=== PATIENT | female | born 1985 | race Caucasian/White ===

== ENCOUNTER 2019-11-01 13:19 | Inpatient (IN) | payer SELFPAY ==
[~2019-11-01] VITALS: Ht 167.7 cm; Wt 72.0 kg
[2019-11-01] VITALS (9 sets, daily range): BP systolic 99–123; BP diastolic 66–83
[2019-11-01] MEDS ORDERED: NS IV 500 ML 500 ML IV ONE (13:43)
--- NOTE | 2019-11-01 13:54 | ED Abdominal Pain ---
General Chief Complaint: Respiratory Problems Stated Complaint: SOA,COUGH,FEVER, CHEST PAIN, ABD SWELLING Nursing Triage Note: PT TO ROOM CL1 WITH C/O SOA, ABD PAIN AND DISTENTION, SWOLLEN LEGS X2 DAYS. PT REPORTS RECENTLY TAKING A LONG CAR TRIP. PT HAS YELLOW TINT TO EYES. Sepsis Screen: No Definite Risk Source of Information: Patient Exam Limitations: No Limitations History of Present Illness Date Seen by Provider: Nov 01, 2019 Time Seen by Provider: 13:30 Initial Comments Patient resents ER by private conveyance with chief complaint of swelling in her abdomen past 2 days got an appointment was made it hard for her to breathe. She's had occasional dry cough. No fevers or chills. She has no significant medical history or abdominal surgeries. She has not any medicines either zdww-rob-juybrog or prescribed. She does not follow with a doctor. She did have to be hospitalized and get blood transfusions a few years ago and [place] due to abnormal uterine bleeding but she did not have any endometrial ablation, hysterectomy or any further follow-up after that. She denies use of IV drugs, blood transfused before 1984, history of hepatitis or recent trauma. She's also noticed in the last week or so a lot of increased swelling in her bilateral feet. Since she thinks she is constipated and not been able to pass a bowel movement in the past 5 or 6 days. She's not been able to urinate for the past couple days. She took a laxative with no relief of her symptoms. Allergies and Home Medications Allergies Coded Allergies: No Known Drug Allergies (Unverified , 11/01/19) Patient Home Medication List Home Medication List Reviewed: Yes Review of Systems Review of Systems Constitutional: No chills, No diaphoresis EENTM: No Blurred Vision, No Double Vision Respiratory: See HPI, Cough, Shortness of Air Cardiovascular: Denies Chest Pain, Denies Lightheadedness Gastrointestinal: See HPI, Abdomen Distended, Abdominal Pain, Constipated; Denies Diarrhea, Denies Nausea; Poor Fluid Intake Genitourinary: Denies Burning, Denies Discharge Musculoskeletal: No back pain, No joint pain Skin: No pruritus, No rash Psychiatric/Neurological: Denies Headache, Denies Numbness, Denies Paresthesia All Other Systems Reviewed Negative Unless Noted: Yes Past Gpgudqv-Ybjhmx-Zbxbpg Hx Patient Social History Alcohol Use: Regular Use Alcohol Beverage of Choice: Wine, Vodka Recreational Drug Use: No Smoking Status: Current Everyday Smoker Type Used: Cigarettes 2nd Hand Smoke Exposure: Yes Recent Foreign Travel: No Contact w/Someone Who Travel: No Recent Infectious Disease Expo: No Recent Hopitalizations: No Physical Abuse: No Sexual Abuse: No Mistreated: No Fear: No Seasonal Allergies Seasonal Allergies: No Past Medical History Surgeries: No Respiratory: No Cardiac: No Neurological: No Genitourinary: No Gastrointestinal: No Musculoskeletal: No Endocrine: No HEENT: No Cancer: No Psychosocial: No Integumentary: No Blood Disorders: No Physical Exam Vital Signs Vital Signs - First Documented 11/01/19 13:36 Temp 36.9 Pulse 113 Resp 18 B/P (MAP) 122/84 (97) O2 Delivery Room Air Capillary Refill : Less Than 3 Seconds Height/Weight/BMI Height: '" Weight: lbs. oz. kg; 21.00 BMI Method: General Appearance: WD/WN, mild distress HEENT: PERRL/EOMI, pharynx normal, other (jaundiced-appearing sclera bilaterally) Neck: full range of motion, supple, normal inspection Respiratory: lungs clear, normal breath sounds, no respiratory distress, no accessory muscle use Cardiovascular: normal peripheral pulses, regular rate, rhythm, no murmur, other (2+ bilateral pitting edema) Peripheral Pulses: 2+ Dorsalis Pedis (R), 2+ Left Dors-Pedis (L), 2+ Radial Pulses (R), 2+ Radial Pulses (L) Gastrointestinal: normal bowel sounds, distended, tenderness (all 4 quadrants) Extremities: normal range of motion, swelling (2+ bilateral pedal edema) Neurologic/Psychiatric: alert, normal mood/affect, oriented x 3 Skin: warm/dry, jaundice Focused Exam Sepsis Stage: Ruled Out Reason for ruling out sepsis: UTI with tachycardia but no other confounders. Anemia causes tachycardia. Progress/Results/Core Measures Results/Orders Lab Results Laboratory Tests Test 11/01/19 14:05 11/01/19 14:12 Range/Units Urine Color ORANGE Urine Clarity SL CLOUDY Urine pH 6.5 5-9 Urine Specific [place] 1.010 L 1.016-1.022 Urine Protein TRACE H NEGATIVE Urine Glucose (UA) TRACE H NEGATIVE Urine Ketones TRACE H NEGATIVE Urine Nitrite POSITIVE H NEGATIVE Urine Bilirubin 3+ H NEGATIVE Urine Urobilinogen >=8.0 < = 1.0 MG/DL Urine Leukocyte Esterase NEGATIVE NEGATIVE Urine RBC (Auto) NEGATIVE NEGATIVE Urine RBC NONE /HPF Urine WBC NONE /HPF Urine Squamous Epithelial Cells NONE /HPF Urine Crystals PRESENT H /LPF Urine Amorphous Sediment RARE COLIN URATES H /LPF Urine Bacteria NEGATIVE /HPF Urine Casts PRESENT /LPF Urine Hyaline Casts 2-5 H /LPF Urine Mucus MODERATE H /LPF Urine Culture Indicated YES White Blood Count 5.9 4.3-11.0 10^3/uL Red Blood Count 2.59 L 4.35-5.85 10^6/uL Hemoglobin 5.7 *L 11.5-16.0 G/DL Hematocrit 21 L 35-52 % Mean Corpuscular Volume 81 80-99 FL Mean Corpuscular Hemoglobin 22 L 25-34 PG Mean Corpuscular Hemoglobin Concent 27 L 32-36 G/DL Red Cell Distribution Width 23.2 H 10.0-14.5 % Platelet Count 92 L 130-400 10^3/uL Mean Platelet Volume 11.7 H 7.4-10.4 FL Neutrophils (%) (Auto) 70 42-75 % Lymphocytes (%) (Auto) 16 12-44 % Monocytes (%) (Auto) 13 H 0-12 % Eosinophils (%) (Auto) 1 0-10 % Basophils (%) (Auto) 1 0-10 % Neutrophils # (Auto) 4.1 1.8-7.8 X 10^3 Lymphocytes # (Auto) 1.0 1.0-4.0 X 10^3 Monocytes # (Auto) 0.7 0.0-1.0 X 10^3 Eosinophils # (Auto) 0.1 0.0-0.3 10^3/uL Basophils # (Auto) 0.1 0.0-0.1 10^3/uL Prothrombin Time 21.4 H 12.2-14.7 SEC INR Comment 1.8 H 0.8-1.4 Activated Partial Thromboplast Time 47 H 24-35 SEC Sodium Level 131 L 135-145 MMOL/L Potassium Level 3.1 L 3.6-5.0 MMOL/L Chloride Level 96 L 98-107 MMOL/L Carbon Dioxide Level 22 21-32 MMOL/L Anion Gap 13 5-14 MMOL/L Blood Urea Nitrogen 4 L 7-18 MG/DL Creatinine 0.57 L 0.60-1.30 MG/DL Estimat Glomerular Filtration Rate > 60 BUN/Creatinine Ratio 7 Glucose Level 88 70-105 MG/DL Calcium Level 7.5 L 8.5-10.1 MG/DL Corrected Calcium 8.6 8.5-10.1 MG/DL Total Bilirubin 5.5 H 0.1-1.0 MG/DL Direct Bilirubin 4.1 H 0.0-0.3 MG/DL Indirect Bilirubin 1.4 MG/DL Aspartate Amino Transf (AST/SGOT) 145 H 5-34 U/L Alanine Aminotransferase (ALT/SGPT) 20 0-55 U/L Alkaline Phosphatase 125 40-136 U/L C-Reactive Protein High Sensitivity 1.34 H 0.00-0.50 MG/DL Total Protein 7.3 6.4-8.2 GM/DL Albumin 2.6 L 3.2-4.5 GM/DL My Orders Orders - CHILO CUMMINGS Ua Culture If Indicated (11/01/19 13:24) Urine Bedside (11/01/19 13:24) Cbc With Automated Diff (11/01/19 13:43) Comprehensive Metabolic Panel (11/01/19 13:43) Hs C Reactive Protein (11/01/19 13:43) Protime With Inr (11/01/19 13:43) Partial Thromboplastin Time (11/01/19 13:43) Ed Iv/Invasive Line Start (11/01/19 13:43) Ns Iv 500 Ml (Sodium Chloride 0.9%) (11/01/19 13:43) Bilirubin, Total And Direct (11/01/19 13:43) Catheter(Urinary) Insert & Ass 03,15 (11/01/19 13:43) Ct Abdomen/Pelvis W (11/01/19 13:43) Chest 1 View, Ap/Pa Only (11/01/19 13:43) Iohexol Injection (Omnipaque 350 Mg/Ml 1 (11/01/19 14:00) Received Contrast (Hold Metformin- Contr (11/01/19 14:00) Ns (Ivpb) (Sodium Chloride 0.9% Ivpb Bag (11/01/19 14:00) Blood Culture (11/01/19 14:23) Urine Culture (11/01/19 14:05) Ceftriaxone For Iv Use (Rocephin For I (11/01/19 14:30) Vital Signs: Special (Order) (11/01/19 14:46) Consent-Obtain Consent For (11/01/19 14:46) Monitor S/S Transfusion Reacti (11/01/19 14:46) Ns Iv 500 Ml (Sodium Chloride 0.9%) (11/01/19 14:46) Type And Screen (11/01/19 14:46) Red Cells Leukocytes Reduced (11/01/19 14:46) Iron Tibc %Sat & Ferritin (11/01/19 14:50) Hepatitis Panel Acute (11/01/19 15:14) Alcohol (11/01/19 15:31) Drug Screen Stat (Urine) (11/01/19 15:31) Medications Given in ED Current Medications Medications Dose Ordered Sig/Chantelle Route Start Time Stop Time Status Last Admin Dose Admin Ceftriaxone Sodium 1000 mg/ Sterile Water 10 ml @ 200 mls/hr ONCE ONCE IV 11/01/19 14:30 11/01/19 14:32 DC 11/01/19 14:43 200 MLS/HR Iohexol 100 ml ONCE ONCE IV 11/01/19 14:00 11/01/19 14:02 DC 11/01/19 14:32 100 ML Sodium Chloride 100 ml ONCE ONCE IV 11/01/19 14:00 11/01/19 14:02 DC 11/01/19 14:32 90 ML Sodium Chloride 500 ml @ 0 mls/hr Q0M ONCE IV 11/01/19 13:43 11/01/19 13:47 DC 11/01/19 14:43 999 MLS/HR Vital Signs/I&O 11/01/19 13:36 Temp 36.9 Pulse 113 Resp 18 B/P (MAP) 122/84 (97) O2 Delivery Room Air Blood Pressure Mean: 97 Progress Progress Note #1: Time: 13:53 Progress Note Suspect some thing is happened to her liver which is causing her ascites, edema and jaundice appearance. We are and get a CT with contrast of the abdomen and pelvis. Put a Bridges catheter in since she's having urinary retention versus the possibility that she has kidney failure and is not producing urine. Plan to get she screen give her 500 cc of fluid and check labs including a fractionated bilirubin. By history the patient doesn't have any risk factors for hepatitis. Metastatic disease is in the differential. This patient has no fever or symptoms of respiratory distress. Her shortness of air is because of the ascites pushing on her diaphragm. We have discontinued the PUI precautions. Progress Note #2: Time: 14:30 Progress Note Blood cultures have been obtained. Rocephin ordered for UTI. Progress Note #3: Time: 14:49 Progress Note Hemoglobin came back 5.7. Type and crossmatched for 2 units. We'll get some iron studies prior to giving her blood. Borderline microcytic anemia. Progress Note #4: Time: 15:37 Progress Note MELD Score: 23 points; MELD Score (2016)*; 19.6% Estimated 3-Month Mortality. Alcohol and drug screen. Put her on alcohol withdrawal management and cut the doses. Diagnostic Imaging Diagonstic Imaging: Xray Plain Films/CT/US/NM/MRI: chest Comments [facility] [place] NAME: MELE HUDSON [facility] REC#: [id number] PT STATUS: REG ER : 1985 PHYSICIAN: CHILO CUMMINGS MD ADMIT DATE: 11/01/19/ER Draft Date of Exam:11/01/19 CHEST 1 VIEW, AP/PA ONLY INDICATION: Short of air. EXAMINATION: Upright portable chest was obtained. FINDINGS: Normal heart size and vascularity. There is bilateral perihilar discoid atelectasis. No infiltrate or effusion is seen. IMPRESSION: Bilateral perihilar discoid atelectasis. Dictated on workstation # [id number] Dict: 11/01/19 1449 Trans: 11/01/19 1451 [facility] [id number] Interpreted by: SHIKHA IBRAHIM MD Electronically signed by: Reviewed: Reviewed by Me Diagonstic Imaging: CT (with IV contrast) Plain Films/CT/US/NM/MRI: abdomen, pelvis Comments [facility] [place] [place] NAME: MELE HUDSON [facility] REC#: [id number] PT STATUS: REG ER : 1985 PHYSICIAN: CHILO CUMMINGS MD ADMIT DATE: 11/01/19/ER Draft Date of Exam:11/01/19 CT ABDOMEN/PELVIS W EXAMINATION: CT abdomen and pelvis with intravenous contrast. TECHNIQUE: Multiple contiguous axial images were obtained through the abdomen and pelvis after the uneventful administration of intravenous contrast. All CT scans use one or more of the following dose optimizing techniques: automated exposure control, MA and/or KvP adjustment based on patient size and exam type or iterative reconstruction. HISTORY: Shortness of breath. Fatigue. COMPARISON: None available. FINDINGS: The heart is unremarkable. Small bilateral pleural effusions are seen with bibasilar opacities, right greater than left. The liver has a nodular contour with generalized decreased attenuation. A focal area of decreased attenuation is seen in the right hepatic lobe, measuring 0.8 cm, most likely representing a benign hepatic cyst. No enhancing hepatic lesion is seen. The portal vein is patent. The gallbladder is unremarkable. A moderate to large amount of ascites is seen in the abdomen and pelvis. The spleen, pancreas, adrenal glands, and kidneys have a normal appearance. There is no pathologically enlarged mesenteric or retroperitoneal adenopathy. The bowel loops are nondilated. No free air. No acute osseous abnormalities. The urinary bladder is decompressed with a Bridges in place. There is no free air, loculated collection or adenopathy in the pelvis. IMPRESSION: 1. Cirrhotic morphology of the liver with generalized decreased attenuation. No focal suspicious lesions are seen in the liver. 2. Moderate to large amount of ascites in the abdomen and pelvis. Recommend fluid sampling to further characterize. 3. Bilateral small pleural effusions with bibasilar opacities. Dictated on workstation # [id number] Dict: 11/01/19 1444 Trans: 11/01/19 1450 [facility] [id number] Interpreted by: PIETRO REGAALDO DO Electronically signed by: Reviewed: Reviewed by Me Departure Communication (Admissions) Time/Spoke to Admitting Phy: 15:00 Discussed the case with Dr. Hazel and he agrees to observe the patient to give her 2 units of packed red blood cells and would like Dr. Brandt, general surgery to perform paracentesis. Rocephin for UTI. Time/Spoke to Consulting Phy: 15:02 Discussed the case with Dr. Brandt, general surgery and he agrees to do paracentesis. Impression Primary Impression: Acute liver failure Qualified Codes: K72.00 - Acute and subacute hepatic failure without coma Additional Impressions: UTI (urinary tract infection) Qualified Codes: N30.00 - Acute cystitis without hematuria Anemia Qualified Codes: D64.9 - Anemia, unspecified Disposition: ADMITTED INPATIENT Condition: Stable Admissions Decision to Admit Reason: Admit from ER (General) Decision to Admit/Date: Nov 01, 2019 Time/Decision to Admit Time: 15:00 CHILO CUMMINGS Nov 01, 2019 13:54
[2019-11-01] MEDS ORDERED: NS 100 ML (IVPB) BAG IV ONE (14:00)
[2019-11-01] MEDS ORDERED: IOHEXOL 350 MG/ML 100 ML (OMNIPAQUE 350) VIAL IV ONE (14:00)
[2019-11-01] MEDS ORDERED: HOLD METFORMIN - RECEIVED CONTRAST 20 ML VIAL IV SCH (14:00)
[2019-11-01 14:12] LABS: CLARITY,URINE SL CLOUDY; GLUCOSE, URINE (UA) TRACE (NEGATIVE); KETONES,URINE TRACE (NEGATIVE); LEUKOCYTE ESTERASE ,URINE NEGATIVE (NEGATIVE); NITRITE,URINE POSITIVE (NEGATIVE); PH,URINE 6.5 (5-9); PROTEIN,URINE TRACE (NEGATIVE)
[2019-11-01 14:21] LABS: AMORPHOUS SEDIMENT,UR RARE AMOR URATES /LPF; BACTERIA,URINE NEGATIVE /HPF
[2019-11-01 14:23] LABS: BILIRUBIN,URINE 3+ (NEGATIVE); COLOR,URINE ORANGE
[2019-11-01] MEDS ORDERED: cefTRIAXone FOR IV USE 1,000 MG in WATER (STERILE) FOR INJECTION 10 ML IV ONE (14:30)
[2019-11-01 14:38] LABS: BASOPHILS # (AUTO) 0.1 10^3/uL (0.0-0.1); BASOPHILS % (AUTO) 1 % (0-10); EOSINOPHILS # (AUTO) 0.1 10^3/uL (0.0-0.3); EOSINOPHILS % (AUTO) 1 % (0-10); HEMATOCRIT 21 % (35-52); LYMPHOCYTES % (AUTO) 16 % (12-44); MEAN CORPUSCULAR HEMOGLOBIN 22 PG (25-34); MEAN CORPUSCULAR HGB CONC 27 G/DL (32-36); MEAN CORPUSCULAR VOLUME 81 FL (80-99); MEAN PLATELET VOLUME 11.7 FL (7.4-10.4); MONOCYTES # (AUTO) 0.7 X 10^3 (0.0-1.0); MONOCYTES % (AUTO) 13 % (0-12); NEUTROPHILS # (AUTO) 4.1 X 10^3 (1.8-7.8); NEUTROPHILS % (AUTO) 70 % (42-75); PLATELET COUNT 92 10^3/uL (130-400); RED CELL DISTRIBUTION WIDTH 23.2 % (10.0-14.5); WHITE BLOOD COUNT 5.9 10^3/uL (4.3-11.0)
[2019-11-01 14:40] LABS: ALBUMIN 2.6 GM/DL (3.2-4.5); CHLORIDE 96 MMOL/L (98-107); POTASSIUM 3.1 MMOL/L (3.6-5.0); SODIUM 131 MMOL/L (135-145)
[2019-11-01 14:41] LABS: INR 1.8 (0.8-1.4); PROTHROMBIN TIME PATIENT 21.4 SEC (12.2-14.7)
[2019-11-01 14:42] LABS: CALCIUM 7.5 MG/DL (8.5-10.1)
[2019-11-01 14:43] LABS: GLUCOSE 88 MG/DL (70-105); TOTAL PROTEIN 7.3 GM/DL (6.4-8.2)
[2019-11-01 14:44] LABS: CARBON DIOXIDE 22 MMOL/L (21-32)
[2019-11-01 14:45] LABS: BILIRUBIN,TOTAL 5.5 MG/DL (0.1-1.0)
[2019-11-01 14:46] LABS: ALKALINE PHOSPHATASE 125 U/L (40-136); HEMOGLOBIN 5.7 G/DL (11.5-16.0)
[2019-11-01] MEDS ORDERED: NS IV 500 ML 500 ML IV SCH ×2 (14:46→16:30)
[2019-11-01 14:47] LABS: CREATININE SERUM 0.57 MG/DL (0.60-1.30); GFR ESTIMATED > 60
[2019-11-01 14:48] LABS: BILIRUBIN,DIRECT 4.1 MG/DL (0.0-0.3); BILIRUBIN,INDIRECT 1.4 MG/DL; BUN/CREATININE RATIO 7
[2019-11-01 14:49] LABS: ALANINE AMINOTRANSFERASE 20 U/L (0-55)
--- NOTE | 2019-11-01 14:50 | Diagnostic Imaging Report ---
EXAMINATION: CT abdomen and pelvis with intravenous contrast. TECHNIQUE: Multiple contiguous axial images were obtained through the abdomen and pelvis after the uneventful administration of intravenous contrast. All CT scans use one or more of the following dose optimizing techniques: automated exposure control, MA and/or KvP adjustment based on patient size and exam type or iterative reconstruction. HISTORY: Shortness of breath. Fatigue. COMPARISON: None available. FINDINGS: The heart is unremarkable. Small bilateral pleural effusions are seen with bibasilar opacities, right greater than left. The liver has a nodular contour with generalized decreased attenuation. A focal area of decreased attenuation is seen in the right hepatic lobe, measuring 0.8 cm, most likely representing a benign hepatic cyst. No enhancing hepatic lesion is seen. The portal vein is patent. The gallbladder is unremarkable. A moderate to large amount of ascites is seen in the abdomen and pelvis. The spleen, pancreas, adrenal glands, and kidneys have a normal appearance. There is no pathologically enlarged mesenteric or retroperitoneal adenopathy. The bowel loops are nondilated. No free air. No acute osseous abnormalities. The urinary bladder is decompressed with a Bridges in place. There is no free air, loculated collection or adenopathy in the pelvis. IMPRESSION: 1. Cirrhotic morphology of the liver with generalized decreased attenuation. No focal suspicious lesions are seen in the liver. 2. Moderate to large amount of ascites in the abdomen and pelvis. Recommend fluid sampling to further characterize. 3. Bilateral small pleural effusions with bibasilar opacities. Dictated by: Dictated on workstation # [id number]
--- NOTE | 2019-11-01 14:51 | Diagnostic Imaging Report ---
INDICATION: Short of air. EXAMINATION: Upright portable chest was obtained. FINDINGS: Normal heart size and vascularity. There is bilateral perihilar discoid atelectasis. No infiltrate or effusion is seen. IMPRESSION: Bilateral perihilar discoid atelectasis. Dictated by: Dictated on workstation # [id number]
--- NOTE | 2019-11-01 16:00 | NUR ---
MELE HUDSON admitted to room 417-1, with an admitting diagnosis of ANEMIA, LIVER FAILURE, AND UTI on 11/01/19 from [facility] via [facility], accompanied by ER STAFF.MELE HUDSON introduced to surroundings, call light, bed controls, phone, TV, temperature control, lights, meal times, smoking policy, visitor policy, side rail policy, bathrooms and showers. Patient Rights given to patient in the handbook. MELE HUDSON verbalizes understanding that [facility] is not responsible for the loss or damage to any personal effects or valuables that are kept in the patients posession during their hospitalization. MELE HUDSON verbalizes understanding of Interdisciplinary Patient Education. Patient and/or family were informed about the Rapid Response Team and its purpose.
--- NOTE | 2019-11-01 16:00 | NUR ---
REPORT FROM MARTINE ENCISO. PATIENT TO ADMIT FROM ED.
[2019-11-01] MEDS ORDERED: 1/2 NS IV SOLUTION 1,000 ML IV PRN (16:10)
--- NOTE | 2019-11-01 16:13 | NUR ---
MELE HUDSON admitted to room 417-1, with an admitting diagnosis of LIVER FAILURE, ANEMIA, UTI, on 11/01/19 from [place] via , accompanied by STAFF.MELE HUDSON introduced to surroundings, call light, bed controls, phone, TV, temperature control, lights, meal times, smoking policy, visitor policy, side rail policy, bathrooms and showers. Patient Rights given to patient in the handbook. MELE HUDSON verbalizes understanding that [facility] is not responsible for the loss or damage to any personal effects or valuables that are kept in the patients posession during their hospitalization. The following Patient Care Plans were discussed with the PATIENT: Discharge Planning, ALTERED COMFORT,RISK FOR INFECTION, and KNOWLEDGE DEFICIT. MELE HUDSON verbalizes understanding of Interdisciplinary Patient Education. Patient and/or family were informed about the Rapid Response Team and its purpose.
[2019-11-01] MEDS ORDERED: ONDANSETRON 4 MG (ZOFRAN) ORAL DISSOLVE TAB SL PRN (16:15)
[2019-11-01] MEDS ORDERED: LORazepam 1 MG (ATIVAN) TAB PO PRN (16:15)
[2019-11-01] MEDS ORDERED: ONDANSETRON 4 MG/2 ML (SDV) Z0FRAN IV PRN (16:15)
[2019-11-01] MEDS ORDERED: LORazepam INJ 2 MG/ML (ATIVAN) VIAL IV PRN (16:15)
[2019-11-01] MEDS ORDERED: D5 1/2 NS 1000 ML IV SOLUTION 1,000 ML IV PRN (16:15)
[2019-11-01] MEDS ORDERED: IBUPROFEN TABLET 200 MG TAB PO PRN (16:15)
[2019-11-01] MEDS ORDERED: SENNA W/DOCUSATE (SENOKOT S) TABLET PO PRN (16:15)
[2019-11-01] MEDS ORDERED: ANTACID SUSP 30 ML UDC (MYLANTA) PO PRN (16:15)
[2019-11-01] MEDS ORDERED: LORazepam INJ 2 MG/ML (ATIVAN) VIAL IM/IV PRN (16:15)
[2019-11-01 16:30] LABS: AMPHETAMINE SCREEN, URINE NEGATIVE (NEGATIVE); BARBITURATE SCREEN URINE NEGATIVE (NEGATIVE); BENZODIAZEPINES SCREEN URINE NEGATIVE (NEGATIVE); CANNABINOID SCREEN, URINE NEGATIVE (NEGATIVE); COCAINE SCREEN URINE NEGATIVE (NEGATIVE); METHADONE STAT NEGATIVE (NEGATIVE); METHAMPHETAMINE SCREEN URINE S NEGATIVE (NEGATIVE); OPIATE SCREEN URINE NEGATIVE (NEGATIVE); OXYCODONE STAT NEGATIVE (NEGATIVE); PROPOXYPHENE STAT NEGATIVE (NEGATIVE); TRICYCLIC ANTIDEPRESSANTS SCRE NEGATIVE (NEGATIVE)
[2019-11-01] MEDS ORDERED: CATHETER FLUSH 10 ML SYR IV PRN (16:30)
--- NOTE | 2019-11-01 16:53 | CONSULTATION REPORT ---
DATE OF SERVICE: 11/01/2019 ADMITTING PHYSICIAN: Dr. Oconnor. HISTORY OF PRESENT ILLNESS: The patient is a 34-year-old female with a history of alcohol abuse. She presented to the Emergency Department with a 2-day history of abdominal distention and pain. She also developed a dry cough. She states that she was hospitalized and given blood transfusions in [place] due to uterine bleeding; however, did not have an endometrial ablation. She also does have a history of hepatitis. A CT scan was performed, which did show significant amount of ascites within the peritoneal cavity as well as cirrhotic changes of the liver, likely due to the alcohol abuse. PAST MEDICAL HISTORY: Alcohol abuse, liver cirrhosis. PAST SURGICAL HISTORY: None. ALLERGIES: No known drug allergies. MEDICATIONS: None. SOCIAL HISTORY: Positive smoke, 20 pack years. Heavy alcohol use daily. FAMILY HISTORY: Noncontributory. VITAL SIGNS: Temperature 36.9, blood pressure 122/84, pulse 113, respirations 18. REVIEW OF SYSTEMS: A well-nourished female, currently in no acute distress. She is experiencing some mild shortness of breath due to the abdominal ascites and distention. No nausea, vomiting. No hematemesis or coffee ground emesis. No known diarrhea, constipation, no red blood per rectum, no dark tarry stools. No fever, chills, no recent inadvertent weight loss. All other review of systems negative. PHYSICAL EXAMINATION: CHEST: Distant breath sounds and expiratory wheezes bilaterally. HEART: Regular, no murmurs. EXTREMITIES: No lower extremity edema, negative Homans sign. HEENT: No scleral icterus. NECK: No cervical lymphadenopathy. ABDOMEN: Distended with a positive fluid shift waived. There are no peritoneal signs. SKIN: Warm, dry. LABORATORY DATA: WBC is 5.9, hemoglobin 5.7, hematocrit 21, platelets 92. BUN 4, creatinine 0.57, total bilirubin is 5.5. INR is 1.8. Urinalysis is positive for nitrite as well as for a bilirubin. ASSESSMENT AND PLAN: A 34-year-old female with a Child-Ocasio classification of liver disease calculated at 7, which does incur a high mortality. At this time, we will recommend cessation of alcohol and proceed with a diagnostic as well as therapeutic paracentesis. We will also recommend a low sodium diet of less than 1.5 grams daily as well as a less than 1500 mL of liquids daily. She may also benefit from diuretics. Job ID: [id number] DocumentID: [id number] Dictated Date: 11/01/2019 15:50:30 Diagrammer Date: 11/01/2019 16:52:36 Dictated By: ALFREDO PENA MD
--- NOTE | 2019-11-01 18:42 | NUR ---
PATIENT DENIES HAVING ANY ALCOHOL OVER 24 HOURS, DENIES ANY C/O. BROTHER IS CURRENTLY AT BEDSIDE . PATIENT HAS EXPRESSED WISHES NOT TO DISCLOSE ANY INFORMATION TO FAMILY. DENIES ANY CONCERNS OR C/O.
--- NOTE | 2019-11-01 19:21 | NUR ---
DR RAJAN NOTIFIED OF K.
[2019-11-01] MEDS: KCL 20 MEQ TAB (K-DUR) PO SCH ×4 (20:28→23:29)
[2019-11-01] MEDS: MAGNESIUM OXIDE (MAG-OX)400 MG TAB PO SCH (21:17)
[2019-11-01] MEDS: CATHETER FLUSH 10 ML SYR IV SCH (21:49)
[2019-11-02] VITALS: BP 123/83
[2019-11-02 04:00] VITALS: BP 122/79
[2019-11-02] MEDS: CATHETER FLUSH 10 ML SYR IV SCH ×3 (06:00→22:00)
[2019-11-02 06:13] LABS: HEMOGLOBIN 7.5 G/DL (11.5-16.0)
[2019-11-02] MEDS: POTASSIUM CL 10MEQ/50ML IVPB 50 ML IV SCH (06:26)
[2019-11-02] MEDS: KCL 20 MEQ TAB (K-DUR) PO SCH (06:27)
[2019-11-02 06:29] LABS: MAGNESIUM 1.3 MG/DL (1.6-2.4)
[2019-11-02] MEDS: MAGNESIUM 1 GM/100 ML IVPB 100 ML IV SCH ×3 (07:29→09:10)
[2019-11-02 07:44] VITALS: BP 121/74
[2019-11-02] MEDS: SPIRONOLACTONE 25 MG (ALDACTONE) TAB PO SCH (07:45)
[2019-11-02] MEDS: MULTIVIT W/MINERALS TAB (THERAGRAN M) PO SCH (07:45)
[2019-11-02] MEDS: FUROSEMIDE 20 MG (LASIX) TAB PO SCH (07:45)
[2019-11-02] MEDS: THIAMINE 100 MG (VITAMIN B-1) TAB PO SCH (07:53)
[2019-11-02] MEDS: FOLIC ACID 1 MG TAB PO SCH (07:54)
[2019-11-02] MEDS: MAGNESIUM OXIDE (MAG-OX)400 MG TAB PO SCH ×2 (07:56→20:51)
[2019-11-02 08:47] LABS: HEMOGLOBIN 7.5 G/DL (11.5-16.0); MEAN PLATELET VOLUME 11.1 FL (7.4-10.4); RED CELL DISTRIBUTION WIDTH 20.9 % (10.0-14.5)
[2019-11-02 08:53] LABS: INR 2.1 (0.8-1.4); PROTHROMBIN TIME PATIENT 24.2 SEC (12.2-14.7)
[2019-11-02 08:58] LABS: ALANINE AMINOTRANSFERASE 18 U/L (0-55); ALBUMIN 2.4 GM/DL (3.2-4.5); ALKALINE PHOSPHATASE 114 U/L (40-136); BILIRUBIN,TOTAL 8.5 MG/DL (0.1-1.0); BUN/CREATININE RATIO 7; CALCIUM 7.4 MG/DL (8.5-10.1); CARBON DIOXIDE 20 MMOL/L (21-32); CHLORIDE 98 MMOL/L (98-107); CREATININE SERUM 0.54 MG/DL (0.60-1.30); GFR ESTIMATED > 60; GLUCOSE 82 MG/DL (70-105); SODIUM 130 MMOL/L (135-145); TOTAL PROTEIN 6.8 GM/DL (6.4-8.2)
[2019-11-02] MEDS ORDERED: NS IV 1000 ML 1,000 ML ONE (09:43)
[2019-11-02] MEDS ORDERED: NS IV 1000 ML 1,000 ML IV SCH (09:45)
[2019-11-02] MEDS ORDERED: ALBUMIN 25% 25 GM/100 ML 100 ML IV ONE ×2 (10:00→14:15)
--- NOTE | 2019-11-02 10:20 | NUR ---
[address]20 [address]. [employer] HERE 3200 CC YELLOWISH FLUID REMOVED FROM RUQ ABD. JORGE. FAIR WITH SOME BLEEDING AT SITE AND BURNING AT SITE. SAMPLES OF FLUID SENT TO LAB. 4 X 4 FOLDED AND SATURATED WITH BLOOD. ENCOURAGED PT. TO NOTIFIY THIS NURSE IF NOTICES BLEEDING ON HER GOWN. CHECKING SITE FREQUENTLY.
[2019-11-02 11:24] LABS: AMYLASE,BODY FLUID 36 U/L; GLUCOSE,BODY FLUID 97 MG/DL; LDH,BODY FLUID 91 U/L; TOTAL PROTEIN,BODY FLUID 1.8 G/DL
[2019-11-02 12:00] VITALS: BP 112/67
[2019-11-02 13:10] LABS: BODY FLUID SOURCE THORACEN
[2019-11-02 13:11] LABS: BODY FLUID APPEARENCE SLT CLDY; BODY FLUID COLOR YELLOW
[2019-11-02 13:18] LABS: BODY FLUID RBC COUNT 2 /uL; BODY FLUID WBC TOTAL COUNT 202 /uL
--- NOTE | 2019-11-02 13:54 | History & Physical-Hospitalist ---
History of Present Illness HPI/Chief Complaint Camille Hawkins is a 34-year-old female with past medical history of alcohol abuse, tobacco abuse, who presented with abdominal distention. This is been present for a couple days she says. She has also been having swelling in her legs bilaterally. She has been having some trouble breathing because of the distention. She reports difficulty taking a deep breath. She denies any chest pain. She denies any fevers or chills. She denies any cough. She denies any nausea or vomiting. She denies any hematemesis. She says that her skin has been turning yellow. She also has red spots on her shoulders. She denies any hematochezia or melena. She smokes about a pack a day. She denies drinking alcohol every day but says she drinks a few times a week. She says she might have a bottle of wine at the most that he usually only has a couple drinks. She denies ever being diagnosed with cirrhosis. She reports that she has had alcohol withdrawals in the past. She has been living in [place]. She is currently here staying with her mother, but will be returning to [place]. Source: patient Exam Limitations: no limitations Date Seen 11/02/19 Time Seen by a Provider: 09:45 Attending Physician Kathy Rajan MD PCP No,Local Physician Referring Physician Date of Admission Nov 01, 2019 at 15:00 Home Medications & Allergies Home Medications Reviewed patient Home Medication Reconciliation performed by pharmacy medication reconciliations document image technician and/or nursing. Patients Allergies have been reviewed. Allergies Allergies Coded Allergies No Known Drug Allergies (Unverified11/01/19) Past Kxrpbcq-[id number]-[id number] Hx Past Med/Social Hx: Reviewed Nursing Past Med/Soc Hx Patient Social History Alcohol Use: Regular Use Number of Drinks Today: 2 Alcohol Beverage of Choice: Wine, Vodka Recreational Drug Use: No Smoking Status: Current Everyday Smoker Type Used: Cigarettes 2nd Hand Smoke Exposure: Yes Physical Abuse Screen: No Sexual Abuse: No Recent Foreign Travel: No Contact w/other who traveled: No Recent Hopitalizations: No Recent Infectious Disease Expo: No Seasonal Allergies Seasonal Allergies: No Past Medical History Currently Using CPAP: No Currently Using BIPAP: No Gastrointestinal: Liver Disease/Jaundice History of Blood Disorders: No Adverse Reaction to Blood Nassar: No Review of Systems Constitutional: no symptoms reported EENTM: no symptoms reported Respiratory: short of breath Cardiovascular: no symptoms reported Gastrointestinal: abdominal pain, constipation, jaundice Genitourinary: no symptoms reported Musculoskeletal: no symptoms reported Skin: rash Psychiatric/Neurological: No Symptoms Reported Physical Exam Physical Exam Vital Signs Vital Signs - First Documented 11/01/19 11/01/19 13:36 15:56 Temp 36.9 Pulse 113 Resp 18 B/P (MAP) 122/84 (97) Pulse Ox 99 O2 Delivery Room Air Capillary Refill : Less Than 3 Seconds Height, Weight, BMI Height: '" Weight: lbs. oz. kg; 25.03 BMI Method: General Appearance: No Apparent Distress, Chronically ill HEENT: PERRL/EOMI, Pharynx Normal, Scleral Icterus (L), Scleral Icterus (R) Neck: Normal Inspection, Supple Respiratory: Lungs Clear, Normal Breath Sounds, No Respiratory Distress Cardiovascular: No Murmur, Tachycardia (he'll rhythm) Gastrointestinal: Normal Bowel Sounds, Soft, Distended, Tenderness Extremity: Non Tender, Swelling Neurologic/Psychiatric: Alert, Oriented x3, No Motor/Sensory Deficits, Normal Mood/Affect Skin: Warm/Dry, Jaundice, Rash (spider angiomas on chest and shoulders) Lymphatic: No Adenopathy Results Results/Procedures Labs Laboratory Tests 11/01/19 14:12 11/02/19 05:53 Patient resulted labs reviewed. Imaging: Reviewed Imaging Report Assessment/Plan Admission Diagnosis decompensated hepatic cirrhosis Admission Status: Observation Assessment and Plan Decompensated hepatic cirrhosis Acute alcoholic hepatitis Alcohol abuse Ascites EtOH elevated at 73 on arrival AST:ALT > 2:1 indicative of alcoholic hepatitis T bili 5.5 on arrival, increased to a 8.5 this morning INR 2.1 Gen. surgery consulted, appreciate assistance planning for paracentesis today Give albumin jane-paracentesis begin Lasix and spironolactone continue ceftriaxone for SBP prophylaxis, await peritoneal fluid studies consult social work job titles, appreciate assistance Normocytic anemia Hemoglobin 5.7 on arrival, MCV 81 Transfused 2 units PRBC iron studies pending Add on B12 and folate Hypomagnesemia Hypokalemia Hyponatremia Continue to monitor and replace as needed Tobacco abuse Nicotine patch DVT prophylaxis: SCDs Diagnosis/Problems Diagnosis/Problems (1) Decompensated hepatic cirrhosis Status: Acute (2) Alcohol abuse Status: Chronic (3) Acute alcoholic hepatitis Status: Acute (4) Ascites due to alcoholic cirrhosis Status: Acute (5) Hypokalemia Status: Acute (6) Hypomagnesemia Status: Acute (7) Hyponatremia Status: Acute (8) Tobacco abuse Status: Chronic (9) Anemia Status: Acute Qualifiers: Anemia type: unspecified type Qualified Codes: D64.9 - Anemia, unspecified Clinical Quality Measures DVT/VTE Risk/Contraindication: Risk Factor Score Per Nursin RFS Level Per Nursing on Admit: 1=Low/No VTE PPX KATHY RAJAN MD Nov 02, 2019 13:54
[2019-11-02] MEDS ORDERED: cefTRIAXone 1,000 MG/SWFI 10 ML IV PUSH IV SCH ×2 (14:00)
[2019-11-02] MEDS ORDERED: NICOTINE 14 MG (NICODERM) PATCH TD NR (14:15)
[2019-11-02 14:49] LABS: BF OTHER CELLS 4 %; LYMPHOCYTES,BODY FLUID 60 %
--- NOTE | 2019-11-02 15:04 | OPERATIVE REPORT ---
DATE OF SERVICE: 11/02/2019 ADMITTING PHYSICIAN: Dr. Oconnor. PREOPERATIVE DIAGNOSIS: Symptomatic ascites. POSTOPERATIVE DIAGNOSIS: Symptomatic ascites. PROCEDURE: Paracentesis. SURGEON: Alfredo Pena MD DANCE PROFESSOR: Jose Luis Trivedi APRN. ANESTHESIA: Local. ESTIMATED BLOOD LOSS: Minimal. FINDINGS: Straw yellow transudative fluid. DISPOSITION: The patient tolerated the procedure well. INDICATIONS: The patient is a 34-year-old female with history of alcohol abuse. She presented to the Emergency Department with a 2-day history of abdominal distention and pain, which she states has slowly been progressive. She also developed a dry cough. She states that she was recently hospitalized and given blood transfusions in [place] due to uterine bleeding; however, has not followed up since that time. She does have a history of hepatitis and does drink a significant amount of alcohol. A CT scan was performed, which did show significant amount of ascites into the peritoneal cavity as well as cirrhotic changes of the liver. DESCRIPTION OF PROCEDURE: Abdomen was prepped and draped in standard surgical fashion. A 1% lidocaine was then used to anesthetize the skin, subcutaneous tissue as well as the muscle layers and peritoneal lining. A vertical skin incision was then made using 11-blade in the right lower abdominal quadrant and the catheter and trocar were then introduced withdrawing of straw yellow transudative fluid. The catheter was then advanced over the guidewire without any resistance. The catheter was then connected to tubing and gravity drainage bag. Sterile gauze was placed over the catheter followed by Op-Site. The patient tolerated the procedure well. We will continue with drainage until there is minimal drainage or she is asymptomatic and remove the catheter. Job ID: [id number] DocumentID: [id number] Dictated Date: 11/02/2019 12:08:57 Assembler Chassis Date: 11/02/2019 15:04:19 Dictated By: ALFREDO PENA MD [facility]
[2019-11-02 15:30] VITALS: BP 112/67
[2019-11-02 20:01] VITALS: BP 117/71
[2019-11-03] VITALS: BP 115/74
[2019-11-03 04:05] VITALS: BP 122/77
[2019-11-03 06:07] LABS: BASOPHILS % (AUTO) 1 % (0-10); EOSINOPHILS # (AUTO) 0.1 10^3/uL (0.0-0.3); EOSINOPHILS % (AUTO) 2 % (0-10); HEMATOCRIT 25 % (35-52); HEMOGLOBIN 7.4 G/DL (11.5-16.0); LYMPHOCYTES # (AUTO) 0.9 X 10^3 (1.0-4.0); LYMPHOCYTES % (AUTO) 18 % (12-44); MEAN CORPUSCULAR HEMOGLOBIN 25 PG (25-34); MEAN CORPUSCULAR HGB CONC 30 G/DL (32-36); MEAN CORPUSCULAR VOLUME 83 FL (80-99); MEAN PLATELET VOLUME 10.8 FL (7.4-10.4); MONOCYTES # (AUTO) 0.5 X 10^3 (0.0-1.0); MONOCYTES % (AUTO) 11 % (0-12); NEUTROPHILS # (AUTO) 3.2 X 10^3 (1.8-7.8); NEUTROPHILS % (AUTO) 68 % (42-75); PLATELET COUNT 69 10^3/uL (130-400); RED CELL DISTRIBUTION WIDTH 21.5 % (10.0-14.5); WHITE BLOOD COUNT 4.7 10^3/uL (4.3-11.0)
[2019-11-03 06:25] LABS: ALBUMIN 2.6 GM/DL (3.2-4.5); CHLORIDE 99 MMOL/L (98-107); POTASSIUM 3.8 MMOL/L (3.6-5.0); SODIUM 132 MMOL/L (135-145)
[2019-11-03 06:26] LABS: CALCIUM 7.7 MG/DL (8.5-10.1)
[2019-11-03 06:27] LABS: GLUCOSE 78 MG/DL (70-105); INR 2.2 (0.8-1.4); PROTHROMBIN TIME PATIENT 25.1 SEC (12.2-14.7); TOTAL PROTEIN 6.2 GM/DL (6.4-8.2)
[2019-11-03 06:28] LABS: CARBON DIOXIDE 24 MMOL/L (21-32)
[2019-11-03 06:31] LABS: ALKALINE PHOSPHATASE 89 U/L (40-136); CREATININE SERUM 0.53 MG/DL (0.60-1.30); GFR ESTIMATED > 60
[2019-11-03 06:32] LABS: BUN/CREATININE RATIO 6
[2019-11-03 06:34] LABS: ALANINE AMINOTRANSFERASE 13 U/L (0-55)
[2019-11-03] MEDS: KCL 20 MEQ TAB (K-DUR) PO SCH (06:38)
[2019-11-03] MEDS: POTASSIUM CL 10MEQ/50ML IVPB 50 ML IV SCH (06:38)
[2019-11-03] MEDS: MAGNESIUM 1 GM/100 ML IVPB 100 ML IV SCH (06:38)
[2019-11-03] MEDS: THIAMINE 100 MG (VITAMIN B-1) TAB PO SCH (06:47)
[2019-11-03] MEDS: MULTIVIT W/MINERALS TAB (THERAGRAN M) PO SCH (06:47)
[2019-11-03] MEDS: CATHETER FLUSH 10 ML SYR IV SCH ×2 (06:47→14:05)
[2019-11-03] MEDS ORDERED: MULT-1136 PO (07:53)
[2019-11-03 08:00] VITALS: BP 117/72
[2019-11-03] MEDS: MAGNESIUM OXIDE (MAG-OX)400 MG TAB PO SCH (08:58)
[2019-11-03] MEDS: SPIRONOLACTONE 25 MG (ALDACTONE) TAB PO SCH (08:58)
[2019-11-03] MEDS: FUROSEMIDE 20 MG (LASIX) TAB PO SCH (08:58)
[2019-11-03] MEDS: FOLIC ACID 1 MG TAB PO SCH (08:58)
[2019-11-03] MEDS ORDERED: NICOTINE PATCH REMOVAL TP SCH (08:59)
[2019-11-03] MEDS ORDERED: NICOTINE 14 MG (NICODERM) PATCH TD SCH (09:00)
--- NOTE | 2019-11-03 09:01 | NUR ---
SPOKE WITH THE PT TO COMPLETE THE MED REC PT ONLY SAID SHE TAKES A MULTIVITAMIN DAILY AND NO PRESCRIPTION MEDICATIONS
[2019-11-03 11:04] LABS: HEPATITIS C ANTIBODY C Non-Reactive (Non-Reactive)
--- NOTE | 2019-11-03 11:07 | NUR ---
CM/SS visited with patient for social service consult. The patient reports she was admitted to the hospital due to fluid in her abdomen. The patient was pleasant but answered with short responses. The patient states that she does drink every day. Her beverage of choice is wine and Vodka. The patient reports that she drinks around 2 to 3 glasses a night of one or the other. CM/SS asked if the patient believed she was addicted to alcohol or believed she had a problem. She stated "no" and reported she did not have any signs or symptoms of withdrawal since she has been in here. The patient did report her and her brother are looking into different services for alcohol use. CM/SS provided education/pamphlet on inpatient rehab through [facility] and outpatient addiction treatment through [facility]. 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 She states it was due to Covid-19. She is not receiving any financial services at this time and reports she is moving back in with her parents for the time being. The patient reports that she does not have any further needs at this time.
[2019-11-03 12:00] VITALS: BP 121/71
[2019-11-03] MEDS ORDERED: FERR324T4 PO (12:55)
[2019-11-03] MEDS ORDERED: FURO20TA4 PO (12:55)
[2019-11-03] MEDS ORDERED: SPIR25TA5 PO (12:55)
[2019-11-03 14:06] VITALS: BP 121/71
--- NOTE | 2019-11-03 15:40 | Discharge Summary ---
Discharge Summary Hospital Course Was the Problem List Reviewed?: Yes Problems/Dx: (1) Decompensated hepatic cirrhosis Status: Acute (2) Alcohol abuse Status: Chronic (3) Acute alcoholic hepatitis Status: Acute (4) Ascites due to alcoholic cirrhosis Status: Acute (5) Hypokalemia Status: Resolved (6) Hypomagnesemia Status: Resolved (7) Hyponatremia Status: Acute (8) Tobacco abuse Status: Chronic (9) Anemia Status: Acute Qualifiers: Qualified Codes: D50.9 - Iron deficiency anemia, unspecified Hospital Course Date of Admission: Nov 01, 2019 at 15:00 Admission Diagnosis : Decompensated hepatic cirrhosis Family Physician/Provider: JessicaLocal Physician Date of Discharge: 11/03/19 Discharge Diagnosis: Decompensated hepatic cirrhosis Hospital Course: Camille Hawkins is a 34-year-old female with history of alcohol abuse who presented with decompensated hepatic cirrhosis with ascites. She underwent a diagnostic and therapeutics paracentesis performed by general surgery. Her peritoneal fluid studies did not indicate SBP. She was started on Lasix and spironolactone for ascites. Her course is complicated by iron deficiency anemia with a hemoglobin of 5.7 on arrival. Her hemoglobin improved to 7.4 after 2 units of PRBC. She was started on iron supplementation. She was encouraged to dis continue alcohol use. She was encouraged to attend AA. She was encouraged to establish care with a grocery specialist. She also needs to establish with a primary care physician. She is visiting from [place] and plans to return there in the next week or two. She plans to get set up with someone at the [facility]. Labs and Pending Lab Test: Laboratory Tests 11/03/19 05:55: White Blood Count 4.7, Red Blood Count 3.02L, Hemoglobin 7.4L, Hematocrit 25L, Mean Corpuscular Volume 83, Mean Corpuscular Hemoglobin 25, Mean Corpuscular Hemoglobin Concent 30L, Red Cell Distribution Width 21.5H, Platelet Count 69L, Mean Platelet Volume 10.8H, Neutrophils (%) (Auto) 68, Lymphocytes (%) (Auto) 18, Monocytes (%) (Auto) 11, Eosinophils (%) (Auto) 2, Basophils (%) (Auto) 1, Neutrophils # (Auto) 3.2, Lymphocytes # (Auto) 0.9L, Monocytes # (Auto) 0.5, Eosinophils # (Auto) 0.1, Basophils # (Auto) 0.0, Prothrombin Time 25.1H, INR Comment 2.2H, Sodium Level 132L, Potassium Level 3.8, Chloride Level 99, Carbon Dioxide Level 24, Anion Gap 9, Blood Urea Nitrogen 3L, Creatinine 0.53L, Estimat Glomerular Filtration Rate > 60, BUN/Creatinine Ratio 6, Glucose Level 78, Calcium Level 7.7L, Corrected Calcium 8.8, Magnesium Level 2.0, Total Bilirubin 8.0H, Aspartate Amino Transf (AST/SGOT) 85H, Alanine Aminotransferase (ALT/SGPT) 13, Alkaline Phosphatase 89, Total Protein 6.2L, Albumin 2.6L 11/03/19 12:30: Lab Scanned Report Transfusion Reaction Form Microbiology 11/02/19 Gram Stain - Final, Resulted 11/02/19 Body Fluid Culture - Preliminary, Resulted No growth 11/01/19 Blood Culture - Preliminary, Resulted No growth 11/01/19 Urine Culture - Final, Complete NO GROWTH Home Meds Active Ferrous Sulfate 324 Mg Tablet.dr 324 Mg PO DAILY 30 Days Furosemide 20 Mg Tablet 20 Mg PO DAILY 30 Days Spironolactone 25 Mg Tablet 50 Mg PO DAILY 30 Days Reported Multivitamin 1 Each Tablet 1 Each PO DAILY Assessment/Pt Instructions Take medications as prescribed. Begin taking diuretics for ascites. Establish care with a primary care physician and a grocery specialist. Discontinue alcohol use. Discharge Planning: <30 minutes discharge planning Discharge Instructions Discharge Diet: Low Sodium Diet Activity as Tolerated: Yes Discharge Physical Examination Vital Signs Vital Signs Date Time Temp Pulse Resp B/P (MAP) Pulse Ox O2 Delivery O2 Flow Rate FiO2 11/03/19 14:06 36.9 106 18 121/71 99 Room Air General Appearance: No Apparent Distress, Chronically ill HEENT: Pharynx Normal, Scleral Icterus (L), Scleral Icterus (R) Respiratory: Lungs Clear, Normal Breath Sounds, No Respiratory Distress Cardiovascular: Regular Rate, Rhythm, No Murmur Gastrointestinal: Normal Bowel Sounds, Non Tender, Soft Extremity: Normal Inspection, Non Tender, Pedal Edema Skin: Warm/Dry, Jaundice Neurologic/Psychiatric: Alert, Oriented x3, No Motor/Sensory Deficits, Normal Mood/Affect Allergies: Coded Allergies: No Known Drug Allergies (Unverified , 11/01/19) Discharge Summary Date of Admission Nov 01, 2019 at 15:00 Date of Discharge Nov 03, 2019 at 14:09 Discharge Date: Nov 03, 2019 Discharge Time: 14:09 Admission Diagnosis decompensated hepatic cirrhosis Consults/Procedures Consulations General surgery Discharge Diagnosis Decompensated hepatic cirrhosis (1) Decompensated hepatic cirrhosis Status: Acute (2) Alcohol abuse Status: Chronic (3) Acute alcoholic hepatitis Status: Acute (4) Ascites due to alcoholic cirrhosis Status: Acute (5) Hypokalemia Status: Resolved (6) Hypomagnesemia Status: Resolved (7) Hyponatremia Status: Acute (8) Tobacco abuse Status: Chronic (9) Anemia Status: Acute Qualifiers: Qualified Codes: D50.9 - Iron deficiency anemia, unspecified Clinical Quality Measures DVT/VTE Risk/Contraindication: Risk Factor Score Per Nursin RFS Level Per Nursing on Admit: 1=Low/No VTE PPX KVNG RAJAN MD Nov 03, 2019 15:39
== END 2019-11-03 14:09 | disposition home or self-care (01) | DRG 433 ==
LOC: ER 13:21 → 4TH 15:00 → OBSVTOIN 15:00
PROVIDERS: ADMIT Internal Medicine; ATTEND Internal Medicine
PROC: 0W9G3ZZ Drainage of Peritoneal Cavity, Percutaneous Approach (ICD-10-PCS; principal; 2019-11-02)
DX: K70.31 Alcoholic cirrhosis of liver with ascites (principal); E87.1 Hypo-osmolality and hyponatremia; F10.10 Alcohol abuse, uncomplicated; E87.6 Hypokalemia; E83.42 Hypomagnesemia; F17.210 Nicotine dependence, cigarettes, uncomplicated; D50.9 Iron deficiency anemia, unspecified
CPT/HCPCS: 36415; 71045; 74177; 80053; 80074; 80306; 80320; 81000; 82150; 82247; 82248; 82607; 82728; 82746; 82945; 83540; 83615; 83735; 84132; 84157; 84703; 85014; 85018; 85025; 85027; 85610; 85730; 86141; 86850; 86900; 86901; 86920; 87040; 87070; 87088; 87205; 89051